=== PATIENT | female | born 1985 | race American Indian/Alaskan Native ===

== ENCOUNTER 2017-01-26 07:27 | Day surgery (SDC) | payer SELFPAY ==
[2017-01-22 08:39] VITALS: BMI 18.9
[2017-01-26 08:20] LABS: MEAN CELL VOLUME 81.9 fl (81.0-99.0); MEAN CORPUSCULAR HEMOGLOBIN 26.1 pg (27.0-31.0); MEAN CORPUSCULAR HGB CONC 31.9 g/dL (33.0-37.0); RED CELL DISTRIBUTION WIDTH 27.5 % (11.5-14.5); WHITE BLOOD COUNT 6.4 K/uL (4.8-10.8)
[2017-01-26] MEDS ORDERED: Chlorhexidine Gluconate 2OZ GEL TP ONE (09:13)
[2017-01-26] MEDS ORDERED: Midazolam 2 MG/2 ML VIAL ONE (10:07)
[2017-01-26] MEDS ORDERED: ePHEDrine 50 mg/ml Inj ONE (10:07)
[2017-01-26] MEDS ORDERED: Propofol 10 mg/ml Inj (20 ML) ONE (10:07)
[2017-01-26] MEDS ORDERED: Succinylcholine 200 mg/10 ml Inj IV ONE (10:08)
[2017-01-26] MEDS ORDERED: Lidocaine 4% (Laryng-O-Jet) Kit MM ONE (10:14)
[2017-01-26] MEDS ORDERED: Lactated Ringer's 1,000 ML IV ONE (10:20)
[2017-01-26] MEDS ORDERED: Dexamethasone 4 mg/1 ml ONE (10:31)
[2017-01-26] MEDS ORDERED: Lactated Ringer's 1,000 ML IV SCH (11:11)
[2017-01-26] MEDS ORDERED: HYDROmorphone 0.5 mg/0.5 ml ISec IVP PRN (11:11)
--- NOTE | 2017-01-26 11:20 | PCM.SURG1 ---
Surgeon's Initial Post Op Note - Surgeon's Notes Surgeon: Dr Reaves Cyber Forensics Analyst: None Type of Anesthesia: General Endo Anesthesia Administered By: Dr Kasey Ruiz Pre-Operative Diagnosis: Menorrhagia with intraterine / submucous fibroid Operative Findings: 6-8wk sized anteverted uterus with hyperplastic endometrial tissue. About 2.5X1.8X 1.5 posterior submucous fibroid nodule. IVF- 400mls. EBLO 20mls. Urine output- 50mls Post-Operative Diagnosis: Same as Preop Diagnosis. Submucous fibroid nodule Operation Performed: D and C Hysteroscopy Specimen/Specimens Removed: Endometrial and endocervical curretings Estimated Blood Loss: EBL {In ML}: 20 Blood Products Given: N/A Post-Op Condition: Good Date of Surgery/Procedure: 01/26/17 Time of Surgery/Procedure: 11:21
[2017-01-26 12:15] VITALS: O2SAT 100
[2017-01-26 12:21] VITALS: RESP 18; TEMP 97.5
[2017-01-26 13:17] VITALS: BP 121/70; PULSE 71
--- NOTE | 2017-01-26 13:25 | OP ---
PROCEDURE DATE: 01/26/2017 PREOPERATIVE DIAGNOSIS: A 31-year-old female with menorrhagia. POSTOPERATIVE DIAGNOSIS: A 31-year-old female with menorrhagia. PROCEDURE DONE: D and C, hysteroscopy with endometrial and endocervical curettage performed on 2016. SURGEON: Dr. Reaves TYPE OF ANESTHESIA: General endotracheal. ANESTHESIA ADMINISTERED BY: Dr. Parks FINDINGS: A 6-8 week size anteverted uterus with hyperplastic endometrial tissue noted at hysterosco py on almost all surfaces in the intrauterine cavity. There was about 2.5 cm x 1.8 cm x 1.5 cm poste rior submucous fibroid nodule. INTRAVENOUS FLUID INTAKE: About 400 mL. ESTIMATED BLOOD LOSS: 20 mL. URINE OUTPUT: 50 mL of clear urine. SPECIMENS TAKEN: Endometrial and endocervical curettings. COMPLICATIONS: There were none. DESCRIPTION OF PROCEDURE: After obtaining informed consent, the patient was sent to the OR with IV r unning. The patient was placed in the supine position on the OR table. After adequate general anest hesia, the patient was placed in the dorsal lithotomy position. The patient was at this point preppe d and draped in the usual sterile fashion. The urinary bladder was drained with a straight cath with a yield of about 50 mL of clear urine. The posterior wall of the vagina was depressed using a weigh claribel speculum and the anterior wall was elevated with an L-shaped retractor to expose the cervix, whic h was held with a single tooth tenaculum. The uterus was sounded to a depth of about 8 cm. The cerv ical canal was dilated using Hegar's dilator to about 8 mm dilatation. The hysteroscope was at this point introduced into the intrauterine cavity and the above findings were noted. Once hysteroscopy h ad been completed and findings noted and pictures obtained, endometrial and endocervical curettage wa s performed using sharp curettes. The tissues obtained were sent for histopathological evaluation. Once the procedure was completed, all the instruments were taken out of the uterus and the vagina. H emostasis on the cervix was assured after application of silver nitrate sticks to the areas where the tenaculum was applied. All counts of instruments and gauze used were correct x 3. The patient was replaced in the supine position and was sent to the recovery room awake and in stable condition. Cas Reaves MD cc: [id number] TT: 01/26/2017 13:24:35 en
== END 2017-01-26 13:32 | disposition home or self-care (01) ==
LOC: H.OPSURG 07:27
PROVIDERS: ATTEND Obstetrics & Gynecology
DX: D25.0 Submucous leiomyoma of uterus (principal); D64.9 Anemia, unspecified

== ENCOUNTER 2017-10-19 15:30 | Emergency (ER) | payer SELFPAY ==
[2017-10-19 15:31] VITALS: BMI 18.9
[2017-10-19 16:14] VITALS: RESP 16; O2SAT 99
--- NOTE | 2017-10-19 17:32 | ED PDOC ---
HPI: CCC, URI, Sore Throat Time Seen by Provider: 10/19/17 17:21 Chief Complaint (Nursing): Flu-like Symptoms Chief Complaint (Provider): Flu-like Symptoms History Per: Patient History/Exam Limitations: no limitations Onset/Duration Of Symptoms: Days (x4) Current Symptoms Are (Timing): Still Present Additional Complaint(s): 32 year old female presents to the ER complaining of a headache since Wednesday. Yesterday she developed cough, congestion, runny nose, chills, and body aches. Patient denies any shortness of breath. Did not take Motrin or Tylenol today. Patient did not receive flu shot this season. Upon arrival, pt is febrile. PMD: Dr. Guillen Past Medical History Reviewed: Historical Data, Nursing Documentation, Vital Signs Vital Signs: Last Vital Signs Temp 101.3 F H 10/19/17 18:35 Pulse 76 10/19/17 18:35 Resp 16 10/19/17 18:35 BP 101/62 10/19/17 18:35 Pulse Ox 99 10/19/17 18:35 - Medical History PMH: Anemia Denies: Chronic Kidney Disease Other PMH: Endometriosis - Surgical History Surgical History: Appendectomy - Family History Family History: States: Unknown Family Hx - Home Medications Home Medications: Ambulatory Orders Medication Instructions Recorded Multivitamin with Iron [Daily 1 tab PO DAILY 01/26/17 Vitamin + Iron] Pyridoxine [Vitamin B6] 25 mg PO DAILY 01/26/17 Acetaminophen [Acetaminophen Extra 2 tab PO Q6 PRN #24 tablet 10/19/17 Strength] Ibuprofen [Motrin Tab] 800 mg PO Q8 PRN #21 tab 10/19/17 Pseudoephedrine [Sudafed Tab] 60 mg PO Q6 PRN #24 tab 10/19/17 - Allergies Allergies/Adverse Reactions: Allergies Allergy/AdvReac Type Severity Reaction Status Date / Time No Known Allergies Allergy Verified 01/22/17 08:39 Review of Systems ROS Statement: Except As Marked, All Systems Reviewed And Found Negative Constitutional: Positive for: Chills, Other (Body aches) ENT: Positive for: Nose Discharge, Nose Congestion Respiratory: Positive for: Cough. Negative for: Shortness of Breath Neurological: Positive for: Headache Physical Exam - Reviewed Nursing Documentation Reviewed: Yes Vital Signs Reviewed: Yes - Physical Exam Appears: Positive for: Non-toxic, No Acute Distress Head Exam: Positive for: ATRAUMATIC, NORMAL INSPECTION, NORMOCEPHALIC Skin: Positive for: Normal Color, Warm, Dry Eye Exam: Positive for: EOMI, Normal appearance, PERRL ENT: Positive for: Normal ENT Inspection Neck: Positive for: Normal, Painless ROM Cardiovascular/Chest: Positive for: Regular Rate, Rhythm. Negative for: Murmur Respiratory: Positive for: Normal Breath Sounds. Negative for: Accessory Muscle Use, Rhonchi, Wheezing, Respiratory Distress Extremity: Positive for: Normal ROM. Negative for: Deformity Neurologic/Psych: Positive for: Alert, Oriented - ECG O2 Sat by Pulse Oximetry: 99 (RA) Pulse Ox Interpretation: Normal Medical Decision Making Medical Decision Making: Time: 17:24 Initial Plan: --Motrin 800 mg PO --Tylenol 975 mg PO --Reevaluation Impression: Flu-like illness Upon provider evaluation patient is medically stable, and requires no further treatment in the ED at this time. Patient will be discharged home with Rx for Motrin, Tylenol, and Sudafed. Counseling was provided and all questions were answered regarding diagnosis and need for follow up with PMD. There is agreement to discharge plan. Return if symptoms persist or worsen. Scribe Attestation: Documented by Ev Villatoro, acting as a scribe for Linda Mireles PA-C Provider Scribe Attestation: All medical record entries made by the Scribe were at my direction and personally dictated by me. I have reviewed the chart and agree that the record accurately reflects my personal performance of the history, physical exam, medical decision making, and the department course for this patient. I have also personally directed, reviewed, and agree with the discharge instructions and disposition. Disposition - Clinical Impression Clinical Impression: Influenza - Patient ED Disposition Is Patient to be Admitted: No Counseled Patient/Family Regarding: Diagnosis, Need For Followup, Rx Given - Disposition Disposition: Routine/Home Disposition Time: 17:31 Condition: FAIR Prescriptions: Acetaminophen [Acetaminophen Extra Strength] 2 tab PO Q6 PRN #24 tablet PRN Reason: Fever >100.4 F Ibuprofen [Motrin Tab] 800 mg PO Q8 PRN #21 tab PRN Reason: Fever >100.4 F Pseudoephedrine [Sudafed Tab] 60 mg PO Q6 PRN #24 tab PRN Reason: Nasal Congestion Instructions: Influenza (ED) Forms: [employer] [facility] (Pashto), [facility] School/Work Excuse - POA Present On Arrival: None
[2017-10-19 18:40] VITALS: BP 101/62; PULSE 76; TEMP 101.3
== END 2017-10-19 18:40 | disposition home or self-care (01) ==
LOC: H.ER 15:30
DX: J11.1 Influenza due to unidentified influenza virus with other respiratory manifestations (principal)

== ENCOUNTER 2018-05-28 14:26 | Emergency (ER) | payer BC, SELFPAY ==
[2018-05-28 14:26] VITALS: BMI 18.9
[2018-05-28 14:50] VITALS: O2SAT 100
--- NOTE | 2018-05-28 15:13 | ED PDOC ---
HPI: Abdomen Time Seen by Provider: 05/28/18 15:12 Chief Complaint (Nursing): Abdominal Pain Chief Complaint (Provider): abdominal pain History Per: Patient Additional Complaint(s): 33 y/o female with history of endometriosis and ovarian cyst presents with right sided adnexal pain that started 4 days ago. Last night the pain was severe and patient took Advil and it subsided. Patient presents today because she is concerned about possible torsion. She denies vaginal bleeding at this time and rates her current pain as a 2 out of 10. CARTON INSPECTOR: Dr. Jennings Past Medical History Reviewed: Historical Data, Nursing Documentation, Vital Signs Vital Signs: Last Vital Signs Temp 97.8 F 05/28/18 14:48 Pulse 81 05/28/18 14:48 Resp 18 05/28/18 14:48 BP 100/66 05/28/18 14:48 Pulse Ox 100 05/28/18 17:51 - Medical History PMH: Anemia - Surgical History Surgical History: Appendectomy Other surgeries: Removal of ovarian cyst, laparoscopic surgery for endometriosis - Family History Family History: States: No Known Family Hx - Living Arrangements Living Arrangements: With Family - Social History Current smoker - smoking cessation education provided: No Alcohol: None Drugs: Denies - Home Medications Home Medications: Ambulatory Orders Medication Instructions Recorded Multivitamin with Iron [Daily 1 tab PO DAILY 01/26/17 Vitamin + Iron] Pyridoxine [Vitamin B6] 25 mg PO DAILY 01/26/17 Acetaminophen [Acetaminophen Extra 2 tab PO Q6 PRN #24 tablet 10/19/17 Strength] Ibuprofen [Motrin Tab] 800 mg PO Q8 PRN #21 tab 10/19/17 Pseudoephedrine [Sudafed Tab] 60 mg PO Q6 PRN #24 tab 10/19/17 Naproxen [Naprosyn] 500 mg PO BID #20 tab 05/28/18 - Allergies Allergies/Adverse Reactions: Allergies Allergy/AdvReac Type Severity Reaction Status Date / Time No Known Allergies Allergy Verified 05/28/18 14:48 Review of Systems ROS Statement: Except As Marked, All Systems Reviewed And Found Negative Constitutional: Negative for: Fever, Chills Gastrointestinal: Positive for: Abdominal Pain. Negative for: Nausea, Vomiting , Diarrhea Genitourinary Female: Positive for: Pelvic Pain. Negative for: Dysuria, Frequency, Incontinence, Hematuria, Vaginal Discharge, Vaginal Bleeding Physical Exam - Reviewed Nursing Documentation Reviewed: Yes Vital Signs Reviewed: Yes - Physical Exam Appears: Positive for: Well, Non-toxic, No Acute Distress Skin: Positive for: Normal Color. Negative for: Rash Eye Exam: Positive for: Normal appearance Cardiovascular/Chest: Positive for: Regular Rate, Rhythm Respiratory: Positive for: Normal Breath Sounds Gastrointestinal/Abdominal: Positive for: Tenderness (Mild tenderness right lower quadrant, right adnexal region, no rebound or guarding) Back: Negative for: L CVA Tenderness, R CVA Tenderness Extremity: Positive for: Normal ROM Neurologic/Psych: Positive for: Alert, Oriented - Laboratory Results Result Diagrams: 05/28/18 15:53 05/28/18 15:53 Urine POC: Negative Urine dip results: Negative for: Leukocyte Esterase, Blood, Nitrate, Ketones, Glucose, Bilirubin, Protein - ECG O2 Sat by Pulse Oximetry: 100 Pulse Ox Interpretation: Normal - Other Rad TV US X-Ray: Read By Radiologist X-Ray Interpretation: see below Medical Decision Making Medical Decision Makin-year-old female with pelvic pain and history of ovarian cysts. Plan: TV US CBC CMP Urine test, urine dip US: FINDINGS: Uterus measures 10.0 x 6.8 x 5.7 centimeters. The endometrium measures 7 millimeters. There is trace fluid within the endometrial canal. There are 2 fibroids noted anteriorly measuring 3.8 centimeters in the corpus and 3.0 centimeters in the anterior fundus. The right ovary measures 6.6 x 5.6 centimeters in and contains a 5.6 centimeter complex cyst. The left ovary measures 4.3 x 3.0 centimeters and contains 2.3 centimeter cyst. IMPRESSION: Complex right ovarian cyst with internal debris. Recommend follow- up. Leiomyomatous uterus. Patient is aware of diagnostic testing results. All questions answered. Patient was advised to follow-up with internal specialist as soon as possible. Prescription for Naprosyn provided. Disposition - Clinical Impression Clinical Impression: Ovarian cyst, Fibroid - Patient ED Disposition Is Patient to be Admitted: No Counseled Patient/Family Regarding: Studies Performed, Diagnosis, Need For Followup, Rx Given - Disposition Referrals: Reddy Quezada MD [Staff Provider] - Disposition: Routine/Home Disposition Time: 18:09 Condition: STABLE Additional Instructions: Take rx meds as directed as needed for pain. Follow up with your recreation director as soon as possible. Prescriptions: Naproxen [Naprosyn] 500 mg PO BID #20 tab Instructions: Ovarian Cysts, Uterine Fibroids Forms: [employer] (Palauan) Results - Lab Results Lab Results: 05/28/18 05/28/18 15:53 15:53 WBC 7.7 RBC 4.22 Hgb 12.8 Hct 38.3 MCV 90.8 MCH 30.3 MCHC 33.4 RDW 13.3 Plt Count 254 MPV 8.3 Neut % (Auto) 63.9 Lymph % (Auto) 29.1 Wilcox % (Auto) 5.6 Eos % (Auto) 0.6 Baso % (Auto) 0.8 Neut # (Auto) 4.9 Lymph # (Auto) 2.3 Wilcox # (Auto) 0.4 Eos # (Auto) 0.0 Baso # (Auto) 0.1 Sodium 141 Potassium 4.2 Chloride 107 Carbon Dioxide 26 Anion Gap 12 BUN 8 Creatinine 0.7 Est GFR ( Amer) > 60 Est GFR (Non-Af Amer) > 60 Random Glucose 68 Calcium 10.0 Total Bilirubin 0.2 AST 23 ALT 21 Alkaline Phosphatase 49 Total Protein 8.5 H Albumin 4.6 Globulin 3.9 Albumin/Globulin Ratio 1.2
[2018-05-28 15:59] LABS: BASO # 0.1 K/uL (0.0-0.2); BASO % 0.8 % (0.0-2.0); EOS % 0.6 % (0.0-4.0); HEMOGLOBIN 12.8 g/dL (12.0-16.0); LYMPH # 2.3 K/uL (1.0-4.3); LYMPH % 29.1 % (20.0-40.0); MEAN CELL VOLUME 90.8 fl (81.0-99.0); MEAN CORPUSCULAR HEMOGLOBIN 30.3 pg (27.0-31.0); MEAN CORPUSCULAR HGB CONC 33.4 g/dL (33.0-37.0); MEAN PLATELET VOLUME 8.3 fl (7.2-11.7); MONO # 0.4 K/uL (0.0-0.8); MONO % 5.6 % (0.0-10.0); NEUT # 4.9 K/uL (1.8-7.0); NEUT % 63.9 % (50.0-75.0); RBC 4.22 Mil/uL (3.80-5.20); RED CELL DISTRIBUTION WIDTH 13.3 % (11.5-14.5); WHITE BLOOD COUNT 7.7 K/uL (4.8-10.8)
[2018-05-28 16:18] LABS: ALB/GLOB RATIO 1.2 (1.0-2.1); ALBUMIN 4.6 g/dL (3.5-5.0); ALT/SGPT 21 U/L (9-52); AST/SGOT 23 U/L (14-36); BLOOD UREA NITROGEN 8 mg/dl (7-17); GFR NON-AFRICAN AMERICAN > 60
--- NOTE | 2018-05-28 17:09 | US ---
Date of service: 05/28/2018 PROCEDURE: HISTORY: right adnexal pain, has ovarian cysts, r/o torsion COMPARISON: 05/10/2018 TECHNIQUE: FINDINGS: Uterus measures 10.0 x 6.8 x 5.7 centimeters. The endometrium measures 7 millimeters. There is trace fluid within the endometrial canal. There are 2 fibroids noted anteriorly measuring 3.8 centimeters in the corpus and 3.0 centimeters in the anterior fundus. The right ovary measures 6.6 x 5.6 centimeters in and contains a 5.6 centimeter complex cyst. The left ovary measures 4.3 x 3.0 centimeters and contains 2.3 centimeter cyst. IMPRESSION: Complex right ovarian cyst with internal debris. Recommend follow-up. Leiomyomatous uterus.
[2018-05-28 18:18] VITALS: BP 123/71; PULSE 76; RESP 17; TEMP 98.1
== END 2018-05-28 18:17 | disposition home or self-care (01) ==
LOC: H.ER 14:26
DX: D25.9 Leiomyoma of uterus, unspecified (principal); N83.209 Unspecified ovarian cyst, unspecified side